=== PATIENT | male | born 1980 | race Caucasian/White ===

== ENCOUNTER 2020-09-09 16:34 | Emergency (ER) | payer OTHER ==
[2020-09-09 19:47] VITALS: BP 147/90; PULSE 99; RESP 18; TEMP 98.7
--- NOTE | 2020-09-09 19:50 | ED ---
General Adult HPI <Floyd Colon - Last Filed: 09/09/20 19:43> - General Source: patient, RN notes reviewed Limitations: no limitations <Bertram Watts - Last Filed: 09/09/20 21:39> - General Stated complaint: ABD Pain - History of Present Illness Initial comments: Patient was seen for medical screen in triage: 39 yo M w PMH of diverticulosis, gallstones, liver disease, splenomegaly, HTN GERD presents to the ER for a CC of abdominal pain x 8 months. Patient reports he has been constipated for about one year now. Patient states his stools are soft. He reports they have been giving him medication to try to help him go to the bathroom more but he has not been able to do so. This has now become painful. Patient states he is here today because the detention nurse did an Xray and saw he was more constipated. No hx of abdominal surgery. Pt denies SOB, CP, fevers. (Floyd Colon) Patient is a 39-year-old male that presents to the emergency department with left lower quadrant pain he does have a past medical history of diverticulosis and his last flareup of diverticulitis was approximately 2 years ago per patient. He notes that at facility he is getting increase fiber, stool softeners to help with bowel movements. He notes that his last bowel movement was approximately 2 days ago. He noted that on serial x-rays the nurse noted a blockage it was getting worse. Patient denies any history of abdominal surgery. He did note that he has 6 out of 10 pain is constant. He did not that there is sometimes bright red blood in his stools. He notes that his stool is hard and formed. He denied any chest pain shortness of breath headache nausea vomiting diarrhea fever fatigue chills. (Bertram Watts) - Related Data Allergies Allergy/AdvReac Type Severity Reaction Status Date / Time No Known Allergies Allergy Verified 09/09/20 19:47 Review of Systems ROS Other: All systems not noted in ROS Statement are negative. <Floyd Colon - Last Filed: 09/09/20 19:43> ROS Other: All systems not noted in ROS Statement are negative. <Bertram Watts - Last Filed: 09/09/20 21:39> ROS Statement: Those systems with pertinent positive or pertinent negative responses have been documented in the HPI. General Exam General appearance: alert, in no apparent distress Head exam: Present: atraumatic, normocephalic, normal inspection Eye exam: Present: normal appearance, PERRL, EOMI. Absent: scleral icterus, conjunctival injection, periorbital swelling ENT exam: Present: normal exam, mucous membranes moist Neck exam: Present: normal inspection. Absent: tenderness, meningismus, lymphadenopathy Respiratory exam: Present: normal lung sounds bilaterally. Absent: respiratory distress, wheezes, rales, rhonchi, stridor Cardiovascular Exam: Present: regular rate, normal rhythm, normal heart sounds. Absent: systolic murmur, diastolic murmur, rubs, gallop, clicks GI/Abdominal exam: Present: soft, tenderness (For quadrant and suprapubic.), normal bowel sounds. Absent: distended, guarding, rebound, rigid Extremities exam: Present: normal inspection, full ROM, normal capillary refill. Absent: tenderness, pedal edema, joint swelling, calf tenderness Neurological exam: Present: alert, oriented X3, CN II-XII intact Psychiatric exam: Present: normal affect, normal mood Skin exam: Present: warm, dry, intact, normal color. Absent: rash <Bertram Watts - Last Filed: 09/09/20 21:39> Course Vital Signs 09/09/20 19:44 Temperature 98.7 F Pulse Rate 99 Respiratory 18 Rate Blood Pressure 147/90 Medical Decision Making - Lab Data Result diagrams: 09/09/20 20:24 09/09/20 20:24 - Radiology Data Radiology results: report reviewed, image reviewed <Bertram Watts - Last Filed: 09/09/20 21:39> - Medical Decision Making 39-year-old male complaining of constipation for the past several years. Labs, 1 L normal saline, 15 mg of Toradol, KUB, 4 mg of Zofran ordered. X-ray negative, nonacute abdomen. Labs unremarkable. Fleet enema ordered. Case discussed with Dr. Estrada, patient can discharge back to facility. (Bertram Watts) - Lab Data Lab Results 09/09/20 09/09/20 09/09/20 Range/Units 20:24 20:24 21:13 WBC 7.9 (3.8-10.6) k/uL RBC 5.26 (4.30-5.90) m/uL Hgb 15.7 (13.0-17.5) gm/dL Hct 44.8 (39.0-53.0) % MCV 85.1 (80.0-100.0) fL MCH 29.8 (25.0-35.0) pg MCHC 35.0 (31.0-37.0) g/dL RDW 12.9 (11.5-15.5) % Plt Count 183 (150-450) k/uL MPV 9.8 Neutrophils % 67 % Lymphocytes % 25 % Monocytes % 5 % Eosinophils % 2 % Basophils % 1 % Neutrophils # 5.3 (1.3-7.7) k/uL Lymphocytes # 2.0 (1.0-4.8) k/uL Monocytes # 0.4 (0-1.0) k/uL Eosinophils # 0.1 (0-0.7) k/uL Basophils # 0.1 (0-0.2) k/uL Sodium 137 (137-145) mmol/L Potassium 4.3 (3.5-5.1) mmol/L Chloride 101 (98-107) mmol/L Carbon Dioxide 27 (22-30) mmol/L Anion Gap 9 mmol/L BUN 10 (9-20) mg/dL Creatinine 0.92 (0.66-1.25) mg/dL Est GFR (CKD-EPI)AfAm >90 (>60 ml/min/1.73 sqM) Est GFR (CKD-EPI)NonAf >90 (>60 ml/min/1.73 sqM) Glucose 102 H (74-99) mg/dL Calcium 9.9 (8.4-10.2) mg/dL Total Bilirubin 0.5 (0.2-1.3) mg/dL AST 30 (17-59) U/L ALT 28 (4-49) U/L Alkaline Phosphatase 53 (38-126) U/L Total Protein 7.8 (6.3-8.2) g/dL Albumin 4.8 (3.5-5.0) g/dL Amylase 64 (30-110) U/L Lipase 76 (23-300) U/L Urine Color Yellow Urine Appearance Clear (Clear) Urine pH 6.5 (5.0-8.0) Ur Specific [place] 1.012 (1.001-1.035) Urine Protein Negative (Negative) Urine Glucose (UA) Negative (Negative) Urine Ketones Negative (Negative) Urine Blood Negative (Negative) Urine Nitrite Negative (Negative) Urine Bilirubin Negative (Negative) Urine Urobilinogen <2.0 (<2.0) mg/dL Ur Leukocyte Esterase Negative (Negative) - Radiology Data KUB: There is no sign of intestinal obstruction or pneumoperitoneum. Fecal pattern is normal. There is no evidence for mass. There are no pathological calcifications over the kidneys. Lung bases are clear. Bony structures are intact. (Bertram Watts) Disposition <Floyd Colon - Last Filed: 09/09/20 19:43> Is patient prescribed a controlled substance at d/c from ED?: No Time of Disposition: 21:39 <Bertram Watts - Last Filed: 09/09/20 21:39> Clinical Impression: Constipation Disposition: HOME SELF-CARE Condition: Stable Instructions (If sedation given, give patient instructions): Constipation (ED) Additional Instructions: Please return to the Emergency Department if symptoms worsen or any other concerns. Continue to increase fiber and take stool softeners daily. Keep a food log to see if anything increases constipation. Can do enemas as needed if constipation gets to bed. Referrals: Nonstaff,Physician [Primary Care Provider] - 1-2 days
[2020-09-09] MEDS ORDERED: SODIUM CHLORIDE 0.9% 1,000 ML IV STA (20:21)
[2020-09-09] MEDS ORDERED: KETOROLAC 15 MG/ML 1 ML VIAL IVP STA (20:21)
[2020-09-09] MEDS ORDERED: ONDANSETRON 4 MG/2 ML VIAL IVP STA (20:21)
[2020-09-09 20:32] LABS: Basophils # (A) 0.1 k/uL (0-0.2); Basophils % (A) 1 %; Eosinophils # (A) 0.1 k/uL (0-0.7); Eosinophils % (A) 2 %; HCT 44.8 % (39.0-53.0); HGB 15.7 gm/dL (13.0-17.5); Lymphocytes % (A) 25 %; MCH 29.8 pg (25.0-35.0); MCV 85.1 fL (80.0-100.0); Mean Platelet Volume 9.8; Monocytes # (A) 0.4 k/uL (0-1.0); Monocytes % (A) 5 %; Neutrophils # (A) 5.3 k/uL (1.3-7.7); Neutrophils % (A) 67 %; Platelet Count 183 k/uL (150-450); RBC 5.26 m/uL (4.30-5.90); RDW 12.9 % (11.5-15.5); WBC 7.9 k/uL (3.8-10.6)
[2020-09-09 20:41] LABS: ALT 28 U/L (4-49); AST 30 U/L (17-59); African American GFR (CKD) >90 (>60 ml/min/1.73 sqM); Albumin 4.8 g/dL (3.5-5.0); Alkaline Phosphatase 53 U/L (38-126); Amylase 64 U/L (30-110); Anion Gap 9 mmol/L; Blood Urea Nitrogen 10 mg/dL (9-20); Calcium 9.9 mg/dL (8.4-10.2); Carbon Dioxide 27 mmol/L (22-30); Chloride 101 mmol/L (98-107); Glucose 102 mg/dL (74-99); Lipase 76 U/L (23-300); Non-African American GFR(CKD) >90 (>60 ml/min/1.73 sqM); Potassium 4.3 mmol/L (3.5-5.1); Sodium 137 mmol/L (137-145); Total Bilirubin 0.5 mg/dL (0.2-1.3); Total Protein 7.8 g/dL (6.3-8.2)
--- NOTE | 2020-09-09 20:53 | XR ---
EXAMINATION TYPE: XR KUB DATE OF EXAM: 09/09/2020 COMPARISON: NONE HISTORY: Abdominal pain. Constipation. TECHNIQUE: 2 views FINDINGS: There is no sign of intestinal obstruction or pneumoperitoneum. Fecal pattern is normal. Th ere is no evidence of a mass. There are no pathologic calcifications over the kidneys. Lung bases are clear. Bony structures are intact. IMPRESSION: Nonacute abdomen.
[2020-09-09] MEDS ORDERED: NA PHOS,M-B/NA PHOS,DI-BA 133 ML ENEMA RECTAL STA (21:15)
[2020-09-09 21:27] LABS: Appearance,Urine Clear (Clear); Bilirubin,Urine Negative (Negative); Blood,Urine Negative (Negative); Color,Urine Yellow; Glucose,Urine (UA) Negative (Negative); Ketones,Urine Negative (Negative); Leukocyte Esterase,Urine Negative (Negative); Nitrite,Urine Negative (Negative); PH, Urine 6.5 (5.0-8.0); Protein,Urine Negative (Negative); Specific Gravity,Urine 1.012 (1.001-1.035); Urobilinogen,Urine <2.0 mg/dL (<2.0)
== END 2020-09-09 23:46 | disposition home or self-care (01) ==
LOC: EC 16:34
DX: K59.00 Constipation, unspecified (principal); R10.32 Left lower quadrant pain; I10 Essential (primary) hypertension; K21.9 Gastro-esophageal reflux disease without esophagitis; Z87.19 Personal history of other diseases of the digestive system
CPT/HCPCS: 36415; 74018; 80053; 81003; 82150; 83690; 85025; 96361; 96374; 96375; 99284

== ENCOUNTER 2021-01-20 10:17 | Day surgery (SDC) | payer OTHER ==
[~2021-01-20 10:17] MED LIST: LACTATED RINGERS 1,000 ML IV SCH; LIDOCAINE 1% (10MG/ML) FOR IV START INTRADERMA PRN
[2021-01-20 10:39] VITALS: TEMP 98
[2021-01-20] MEDS ORDERED: PROPOFOL 10 MG/ML 20 ML VIAL IV ONE (11:36)
[2021-01-20] MEDS ORDERED: fentaNYL (PF) 50 MCG/ML 2 ML AMP ONE (11:36)
[2021-01-20] MEDS ORDERED: MIDAZOLAM 2 MG/2 ML VIAL ONE (11:36)
--- NOTE | 2021-01-20 12:29 | P.PCN ---
Date of Procedure: 01/20/21 Description of Procedure: Brief history: Patient is a pleasant 40-year-old male presenting for outpatient esophagogastroduodenoscopy and colonoscopy for evaluation of heartburn and hemorrhage of the anus and rectum. Patient seen in the clinic reporting heartburn. Currently on omeprazole therapy. He also reports a long-standing history of chronic constipation with hard bowel movements with occasional bright red blood per rectum. Procedure performed: Esophagogastroduodenoscopy with biopsy Colonoscopy with biopsy Estimated blood loss: Minimal. Preoperative diagnosis: Heartburn, hemorrhage of the anus and rectum, chronic constipation Anesthesia: MAC Procedure: After informed consent was obtained from the patient was brought into the endoscopy unit and IV sedation was administered by anesthesia under continuous monitoring. Initially upper endoscopy was done. The Olympus GF 190 video endoscope was inserted into the mouth and esophagus intubated without any difficulty and was gradually advanced into the stomach and duodenum and carefully examined. The bulb and second part of the duodenum appeared normal, With biopsies taken to rule out celiac sprue. The scope was then withdrawn into the stomach adequately insufflated with air and upon careful examination the antrum and body, cardia and fundus appeared normal, With some linear streaking erythema in the antrum suggestive of moderate gastritis with biopsies of antrum and body taken. The scope was then withdrawn into the esophagus. The GE junction was located at 36 cm to the incisors. It appeared regular with no erythema erosions or ulcerations. Rest of the esophagus appeared normal, With lower esophageal biopsy. Patient tolerated the procedure well. At this time the patient continued to remain sedation. Initial digital rectal examination was normal. Olympus CF 190 video colonoscope was then inserted into the rectum and gradually advanced to the cecum without any difficulty. Careful examination was performed as the scope was gradually being withdrawn. The prep was excellent. The cecum, ascending colon, transverse colon, descending colon, sigmoid colon and rectum appeared grossly normal with multiple small and large mouth diverticula noted throughout the colon and particularly in the sigmoid colon where there was an area of thickened tissue 30 cm from the anal verge with some associated erythema and nodularity likely related to patient's underlying diverticulosis which was biopsied aggressively. Retroflexion was performed in the rectum and no lesions were noted, internal hemorrhoids were seen. Patient tolerated the procedure well. Impression: 1. Moderate gastritis. Biopsies of the duodenum, antrum body and lower esophagus. 2. Moderate pandiverticulosis. Internal hemorrhoids. Thickened erythematous sigmoid fold 30 cm from the anal verge likely related to underlying diverticulosis which was biopsied. Recommendations: Findings of this examination were discussed with the patient. Okay to resume diet. Okay to resume medications. Await pathology from biopsies. Continue current medical management. If any adenomatous or malignant changes on biopsy from colonoscopy patient will need surgical referral for referral to advance endoscopy for definitive treatment, however changes appeared to be related to underlying diverticulosis.
[2021-01-20 12:55] VITALS: BP 123/68; PULSE 78; RESP 18
== END 2021-01-20 13:05 ==
LOC: ORWHC2ENDO 10:17
PROVIDERS: ATTEND Internal Medicine
DX: K57.30 Diverticulosis of large intestine without perforation or abscess without bleeding (principal); D72.820 Lymphocytosis (symptomatic); K29.50 Unspecified chronic gastritis without bleeding; K52.9 Noninfective gastroenteritis and colitis, unspecified; K64.8 Other hemorrhoids; I10 Essential (primary) hypertension; E78.5 Hyperlipidemia, unspecified; K21.9 Gastro-esophageal reflux disease without esophagitis; F17.200 Nicotine dependence, unspecified, uncomplicated; Z79.899 Other long term (current) drug therapy; Z98.890 Other specified postprocedural states; K62.5 Hemorrhage of anus and rectum
CPT/HCPCS: 45380; 43239; 88305; J2250; J3010; J2704